=== PATIENT | female | born 1975 | race Caucasian/White ===

== ENCOUNTER 2017-06-11 15:01 | Emergency (ER) | payer MEDICAID ==
[~2017-06-11] VITALS: Ht 157.5 cm; Wt 50.0 kg
[2017-06-11 15:25] VITALS: BP 157/99
[2017-06-11] MEDS ORDERED: ketorolac trometh inj. 60 MG/2 ML VIAL IM ONE (15:30)
[2017-06-11] MEDS ORDERED: IBUP-1985 PO (16:23)
== END 2017-06-11 16:33 | disposition home or self-care (01) ==
LOC: ER 15:03
DX: S60.221A Contusion of right hand, initial encounter (principal); Z88.8 Allergy status to other drugs, medicaments and biological substances; W22.09XA Striking against other stationary object, initial encounter; Y93.89 Activity, other specified; Y92.89 Other specified places as the place of occurrence of the external cause; Y99.8 Other external cause status
CPT/HCPCS: 29125; 73130; 96372; 99284; A4565; J1885; 99285

== ENCOUNTER 2019-12-10 16:24 | Emergency (ER) | payer MEDICAID, OTHER ==
[~2019-12-10] VITALS: Ht 157.5 cm; Wt 50.4 kg
[~2019-12-10 16:24] MED LIST: IBUP-1985 PO
[2019-12-10 16:35] VITALS: BP_SYST 116
--- NOTE | 2019-12-10 16:48 | NUR ---
DR RANGEL AT BEDSIDE TO EVALUATE PT
--- NOTE | 2019-12-10 17:11 | NUR ---
READING INTERVENTIONIST AT BEDSIDE
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
--- NOTE | 2019-12-10 18:38 | NUR ---
per dr. horvath , send Pt to CT as prioriety if labs have not been drawn yet.
[2019-12-10] MEDS ORDERED: iohexol 350MG/ML 100ml bottle IV ONE (18:41)
[2019-12-10 19:53] VITALS: BP_DIAS 135
== END 2019-12-10 19:54 | disposition home or self-care (01) ==
LOC: ER 16:25
DX: M54.2 Cervicalgia (principal); R13.19 Other dysphagia; Z98.51 Tubal ligation status; Z88.8 Allergy status to other drugs, medicaments and biological substances; Z79.899 Other long term (current) drug therapy
CPT/HCPCS: 70498; 93880; 99285; Q9967